=== PATIENT | male | born 1940 | race African-American/Black ===

== ENCOUNTER 2023-08-27 01:06 | Emergency (ER) | payer OTHER ==
[~2023-08-27] VITALS: Ht 188 cm; Wt 80.0 kg
[2023-08-27 01:13] VITALS: TEMP 100.4; O2SAT 98
[2023-08-27] MEDS: PIPERACILLIN/TAZO 3.375G/50ML 50 ML IV ONE (02:35)
[2023-08-27 02:36] LABS: BASOPHILS % 0.7 % (0.0-2.0); EOSINOPHILS % 2.1 % (0.0-5.0); HEMATOCRIT. 37.2 % (42.0-52.0); HEMOGLOBIN. 12.6 g/dL (14.0-18.0); MEAN CORPUSCULAR HEMOGLOBIN 32.5 pg (28.0-32.0); MEAN CORPUSCULAR VOLUME 95.6 fL (80.0-94.0); MEAN PLATELET VOLUME 7.7 fl (7.4-10.4); MONOCYTES % 13.3 % (2.0-8.0); NEUTROPHILS % 65.9 % (40.0-76.0); PLATELET 221 x1000/uL (130-400); RED BLOOD CELL COUNT 3.89 mill/uL (4.7-6.1); RED CELL DISTRIBUTION WIDTH 16.5 % (11.6-14.6); WHITE BLOOD COUNT 7.2 x1000/uL (4.5-11.0)
[2023-08-27] MEDS: ONDANSETRON HCL 4MG/2ML INJ IV STA (02:36)
[2023-08-27] MEDS: ACETAMINOPHEN 325MG TABLET PO STA (02:37)
[2023-08-27] MEDS: MORPHINE SULFATE 4 MG/ML INJ (FOR IV/IM USE) IV STA (02:37)
[2023-08-27 02:44] LABS: CHLORIDE 93 mEq/L (98-107); POTASSIUM 5.2 mEq/L (3.5-5.1); SODIUM 132 mEq/L (136-145)
[2023-08-27 02:45] LABS: CALCIUM 9.5 mg/dL (8.7-10.4); CARBON DIOXIDE 33 mEq/L (21-32)
[2023-08-27 02:50] LABS: GLUCOSE 105 mg/dL (70-105); UREA NITROGEN BLOOD 27 mg/dL (9-23)
[2023-08-27 02:51] LABS: TROPONIN I HIGH SENSITIVITY 42 ng/L (3.0-53)
[2023-08-27 02:52] LABS: ALANINE AMINOTRANSFERASE 10 IU/L (10-49); ASPARTATE AMINOTRANSFERASE 18 IU/L (<34); BILIRUBIN DIRECT 0.2 mg/dL (<=3.0); BILIRUBIN TOTAL 0.6 mg/dL (0.1-1.0); PROTEIN TOTAL 8.1 g/dL (6.0-8.3)
[2023-08-27 04:09] LABS: CREATININE 6.1 mg/dL (0.6-1.3)
[2023-08-27] MEDS: VANCOMYCIN 1G PREMIX 200 ML IV ONE (04:18)
[2023-08-27 07:02] VITALS: BP 121/76; PULSE 67; RESP 18
== END 2023-08-27 07:15 | disposition short-term general hospital (02) ==
LOC: ER 01:06 → EDBEDREQ 02:24 → ER 07:15
DX: J18.9 Pneumonia, unspecified organism (principal); A41.9 Sepsis, unspecified organism; E87.5 Hyperkalemia; I12.0 Hypertensive chronic kidney disease with stage 5 chronic kidney disease or end stage renal disease; N18.6 End stage renal disease; E78.00 Pure hypercholesterolemia, unspecified; F03.90 Unspecified dementia, unspecified severity, without behavioral disturbance, psychotic disturbance, mood disturbance, and anxiety; Z99.2 Dependence on renal dialysis
CPT/HCPCS: 99291; 74176; 96365; 96375; 96367; 80076; 80048; 83605; 83690; 85025; 87040; 84484; 36415; 71045; 93005; J2405; J2543; J3370; J2270

== ENCOUNTER 2023-12-09 13:04 | Emergency (ER) | payer OTHER ==
[~2023-12-09] VITALS: Ht 167.6 cm; Wt 78.0 kg
[2023-12-09 13:14] VITALS: BP 117/56; PULSE 78; RESP 16; TEMP 98; O2SAT 99
[2023-12-09] MEDS ORDERED: MAGNESIUM/ALUMINUM HYDROXIDE/SIMETHICONE 30ML UDC PO STA (13:14)
[2023-12-09] MEDS ORDERED: ONDANSETRON 4MG ODT PO STA (13:14)
[2023-12-09] MEDS ORDERED: DICYCLOMINE HCL 10MG CAPSULE PO NR (13:14)
[2023-12-09] MEDS ORDERED: DICYCLOMINE 10 MG/5 ML ORAL SYR PO STA (13:14)
[2023-12-09 14:05] LABS: BASOPHILS % 0.8 % (0.0-2.0); EOSINOPHILS % 2.9 % (0.0-5.0); HEMATOCRIT. 30.2 % (42.0-52.0); HEMOGLOBIN. 9.8 g/dL (14.0-18.0); LYMPHOCYTES % 33.6 % (20.0-50.0); MEAN CORPUSCULAR HEMOGLOBIN 32.2 pg (28.0-32.0); MEAN CORPUSCULAR HGB CONC 32.5 g/dL (31.0-37.0); MEAN CORPUSCULAR VOLUME 99.1 fL (80.0-94.0); MEAN PLATELET VOLUME 7.5 fl (7.4-10.4); MONOCYTES % 14.4 % (2.0-8.0); NEUTROPHILS % 48.3 % (40.0-76.0); PLATELET 235 x1000/uL (130-400); RED BLOOD CELL COUNT 3.05 mill/uL (4.7-6.1); RED CELL DISTRIBUTION WIDTH 15.5 % (11.6-14.6); WHITE BLOOD COUNT 5.5 x1000/uL (4.5-11.0)
[2023-12-09 14:11] LABS: CHLORIDE 98 mEq/L (98-107); POTASSIUM 3.5 mEq/L (3.5-5.1); SODIUM 136 mEq/L (136-145)
[2023-12-09 14:12] LABS: CALCIUM 9.2 mg/dL (8.7-10.4); CARBON DIOXIDE 33 mEq/L (21-32)
[2023-12-09 14:17] LABS: GLUCOSE 89 mg/dL (70-105); UREA NITROGEN BLOOD 18 mg/dL (9-23)
[2023-12-09 14:19] LABS: ALANINE AMINOTRANSFERASE 11 IU/L (10-49); ALBUMIN 3.7 g/dL (3.2-4.8); ASPARTATE AMINOTRANSFERASE 19 IU/L (<34); BILIRUBIN DIRECT 0.2 mg/dL (<=3.0); BILIRUBIN TOTAL 0.5 mg/dL (0.1-1.0); PROTEIN TOTAL 7.2 g/dL (6.0-8.3)
[2023-12-09 14:51] LABS: CREATININE 5.9 mg/dL (0.6-1.3)
[2023-12-09] MEDS: ONDANSETRON 4MG ODT PO NR (16:56)
[2023-12-09] MEDS: MAGNESIUM/ALUMINUM HYDROXIDE/SIMETHICONE 30ML UDC PO NR (16:57)
== END 2023-12-09 18:10 | disposition home or self-care (01) ==
LOC: ER 13:04
DX: R10.9 Unspecified abdominal pain (principal); D64.9 Anemia, unspecified; I12.0 Hypertensive chronic kidney disease with stage 5 chronic kidney disease or end stage renal disease; N18.6 End stage renal disease; Z99.2 Dependence on renal dialysis
CPT/HCPCS: 99283; 80076; 80048; 83690; 85025; 36415; Q0162

== ENCOUNTER 2024-02-15 20:26 | Emergency (ER) | payer OTHER ==
[~2024-02-15] VITALS: Ht 172.7 cm; Wt 69.0 kg
[2024-02-15 20:29] VITALS: O2SAT 94
[2024-02-15] MEDS: SODIUM CHLORIDE 0.9% 1,000 ML IV ONE (22:04)
[2024-02-15] MEDS: MORPHINE SULFATE 4 MG/ML INJ (FOR IV/IM USE) IV STA (22:04)
[2024-02-15] MEDS: ONDANSETRON HCL 4MG/2ML INJ IV STA (22:04)
[2024-02-15 22:11] LABS: DIFFERENTIAL COMMENT 1; HEMATOCRIT. 30.2 % (42.0-52.0); HEMOGLOBIN. 10.2 g/dL (14.0-18.0); MEAN CORPUSCULAR HEMOGLOBIN 32.6 pg (28.0-32.0); MEAN CORPUSCULAR HGB CONC 33.8 g/dL (31.0-37.0); MEAN CORPUSCULAR VOLUME 96.4 fL (80.0-94.0); MEAN PLATELET VOLUME 7.1 fl (7.4-10.4); PLATELET 221 x1000/uL (130-400); RED BLOOD CELL COUNT 3.14 mill/uL (4.7-6.1); RED CELL DISTRIBUTION WIDTH 14.9 % (11.6-14.6); WHITE BLOOD COUNT 5.1 x1000/uL (4.5-11.0)
[2024-02-15 22:19] LABS: CHLORIDE 93 mEq/L (98-107); PROTHROMBIN TIME 11.3 sec (9.6-11.0); SODIUM 133 mEq/L (136-145)
[2024-02-15 22:20] LABS: CALCIUM 9.4 mg/dL (8.7-10.4); CARBON DIOXIDE 30 mEq/L (21-32)
[2024-02-15 22:25] LABS: GLUCOSE 85 mg/dL (70-105); UREA NITROGEN BLOOD 31 mg/dL (9-23)
[2024-02-15 22:26] LABS: TROPONIN I HIGH SENSITIVITY 37 ng/L (3.0-53)
[2024-02-15 22:27] LABS: ALANINE AMINOTRANSFERASE 9 IU/L (10-49); ALBUMIN 3.6 g/dL (3.2-4.8); ASPARTATE AMINOTRANSFERASE 14 IU/L (<34); BILIRUBIN TOTAL 0.2 mg/dL (0.1-1.0); PROTEIN TOTAL 7.6 g/dL (6.0-8.3)
[2024-02-15 22:42] LABS: PLATELET ESTIMATE NORMAL
[2024-02-15 22:53] LABS: BILIRUBIN DIRECT < 0.1 mg/dL (<=3.0)
[2024-02-15 22:55] LABS: CREATININE 7.2 mg/dL (0.6-1.3)
[2024-02-15] MEDS: CEFTRIAXONE 1GM/50ML 50 ML IV ONE (23:28)
[2024-02-16] MEDS: DEXTROSE 50% WATER 50ML SYRINGE IV NR (01:06)
[2024-02-16] MEDS: DEXTROSE 5% WATER 1,000 ML IV NR (01:06)
[2024-02-16 01:26] VITALS: BP 127/66; PULSE 72; RESP 18; TEMP 36.66960; O2SAT 96
== END 2024-02-16 01:40 | disposition short-term general hospital (02) ==
LOC: ER 20:26
DX: R14.0 Abdominal distension (gaseous) (principal); K59.00 Constipation, unspecified; N17.9 Acute kidney failure, unspecified; I12.9 Hypertensive chronic kidney disease with stage 1 through stage 4 chronic kidney disease, or unspecified chronic kidney disease; F03.90 Unspecified dementia, unspecified severity, without behavioral disturbance, psychotic disturbance, mood disturbance, and anxiety; E11.22 Type 2 diabetes mellitus with diabetic chronic kidney disease; N18.9 Chronic kidney disease, unspecified
CPT/HCPCS: 80076; 80048; 83880; 83690; 85025; 85610; 84484; 36415; 71045; 74176; 99285; 82962; 96361; 96365; 96375; J0696; J2405; J2270; J7030; Z7610 ×2

== ENCOUNTER 2024-03-18 14:35 | Emergency (ER) | payer OTHER ==
[~2024-03-18] VITALS: Ht 172.7 cm; Wt 70.0 kg
[2024-03-18 14:37] VITALS: TEMP 98; O2SAT 97
[2024-03-18 17:14] LABS: BASOPHILS % 0.9 % (0.0-2.0); EOSINOPHILS % 2.9 % (0.0-5.0); HEMATOCRIT. 33.6 % (42.0-52.0); HEMOGLOBIN. 11.2 g/dL (14.0-18.0); LYMPHOCYTES % 20.9 % (20.0-50.0); MEAN CORPUSCULAR HEMOGLOBIN 32.2 pg (28.0-32.0); MEAN CORPUSCULAR HGB CONC 33.4 g/dL (31.0-37.0); MEAN CORPUSCULAR VOLUME 96.6 fL (80.0-94.0); MEAN PLATELET VOLUME 7.7 fl (7.4-10.4); MONOCYTES % 14.1 % (2.0-8.0); NEUTROPHILS % 61.2 % (40.0-76.0); PLATELET 202 x1000/uL (130-400); RED BLOOD CELL COUNT 3.48 mill/uL (4.7-6.1); WHITE BLOOD COUNT 5.2 x1000/uL (4.5-11.0)
[2024-03-18 17:22] LABS: PROTHROMBIN TIME 11.3 sec (9.6-11.0)
[2024-03-18] MEDS: MORPHINE SULFATE 4 MG/ML INJ (FOR IV/IM USE) IV STA (17:32)
[2024-03-18 17:42] LABS: CHLORIDE 94 mEq/L (98-107); POTASSIUM 3.8 mEq/L (3.5-5.1); SODIUM 135 mEq/L (136-145)
[2024-03-18 17:43] LABS: CALCIUM 9.6 mg/dL (8.7-10.4); CARBON DIOXIDE 33 mEq/L (21-32)
[2024-03-18 17:48] LABS: GLUCOSE 63 mg/dL (70-105); UREA NITROGEN BLOOD 23 mg/dL (9-23)
[2024-03-18 17:50] LABS: ALANINE AMINOTRANSFERASE 13 IU/L (10-49); ALBUMIN 3.6 g/dL (3.2-4.8); ASPARTATE AMINOTRANSFERASE 22 IU/L (<34); BILIRUBIN DIRECT 0.3 mg/dL (<=3.0); BILIRUBIN TOTAL 0.7 mg/dL (0.1-1.0); PROTEIN TOTAL 7.5 g/dL (6.0-8.3)
[2024-03-18 18:09] LABS: ETHANOL BLOOD < 10 mg/dL (<10)
[2024-03-18 18:11] LABS: CREATININE 5.2 mg/dL (0.6-1.3); TROPONIN I HIGH SENSITIVITY 54 ng/L (3.0-53)
[2024-03-18 22:04] LABS: TROPONIN I HIGH SENSITIVITY 63 ng/L (3.0-53)
[2024-03-18] MEDS: ASPIRIN 325MG EC TABLET PO NR (22:19)
[2024-03-19] MEDS: DEXTROSE 50% WATER 50ML SYRINGE IV ONE (02:23)
[2024-03-19] MEDS: LEVOFLOXACIN 500MG PREMIX 100 ML IV ONE (02:23)
[2024-03-19 04:58] VITALS: BP 133/59; PULSE 74; RESP 16; O2SAT 100
== END 2024-03-19 05:19 | disposition short-term general hospital (02) ==
LOC: ER 14:35
DX: J18.9 Pneumonia, unspecified organism (principal); I21.4 Non-ST elevation (NSTEMI) myocardial infarction; N18.6 End stage renal disease; I12.0 Hypertensive chronic kidney disease with stage 5 chronic kidney disease or end stage renal disease; Z99.2 Dependence on renal dialysis; F03.90 Unspecified dementia, unspecified severity, without behavioral disturbance, psychotic disturbance, mood disturbance, and anxiety; E11.22 Type 2 diabetes mellitus with diabetic chronic kidney disease
CPT/HCPCS: 80076; 80048; 80320; 83690; 85025; 85610; 84484; 36415; 71045; 74176; 93005; 96375 ×2; 99291; 96365; J2270; J1956; G0480